=== PATIENT | female | born 1975 | race Two or more races ===

== ENCOUNTER 2020-08-30 14:41 | Emergency (ER) | payer OTHER ==
[~2020-08-30] VITALS: Ht 172.7 cm; Wt 83.6 kg
--- NOTE | 2020-08-30 15:47 | NUR ---
SENIOR SQL DEVELOPER: PT TO ROOM FROM LOBBY
--- NOTE | 2020-08-30 16:28 | NUR ---
PT SEEN AT , HAD CT SCHEDULED OUTPT AND WAS WAITING IN RADIOLOGY WHEN PAIN BECAME UNBEARABLE AND DECIDED TO CHECK INTO ER. PT CRYING IN PAIN. PAIN ONSET THURSDAY MORNING AND WORSENING TODAY. PAIN PERIUMBILICAL, CRAMPING AND SHARP. NO N/V/D OR OTHER SX. SCAR TISSUE AROUND UMBILICUS, NOT DIFFERENT PER PT BUT PAINFUL WITH PALPATION. PT LYING IN POSITION OF COMFORT, FLAT. IV PLACED, LABS DRAWN WITH START. BP CUFF, PULSE OX IN PLACE. CALL LIGHT WITHIN REACH, WARM BLANKET PROVIDED.
[2020-08-30] MEDS ORDERED: MORPHINE SULFATE 4 MG/ML, 1ML ONE ×2 (16:40→18:34)
[2020-08-30] MEDS ORDERED: ONDANSETRON 2MG/ML, 2ML ONE (16:40)
[2020-08-30] MEDS: MORPHINE SULFATE 4 MG/ML, 1ML IVPush PRN ×2 (16:45→18:37)
--- NOTE | 2020-08-30 16:49 | NUR ---
PT MEDICATED PER ERP ORDER. PT AMBULATORY TO BR TO PROVIDE UA.
[2020-08-30] MEDS ORDERED: ONDANSETRON 2MG/ML, 2ML IVPush ONE (17:00)
[2020-08-30] MEDS ORDERED: SODIUM CHLORIDE FLUSH 10ML SYR IVF ONE (17:00)
--- NOTE | 2020-08-30 17:03 | NUR ---
URINE COLLECTED/SENT TO LAB. LIGHTS DIMMED, CALL LIGHT WITHIN REACH, AWAITING CT.
[2020-08-30 17:10] LABS: MICROSCOPIC NOT IND
[2020-08-30 17:38] LABS: BASOPHILS % (AUTO) 0 % (0-1); EOSINOPHILS % (AUTO) 1 % (1-7); LYMPHOCYTES % (AUTO) 15 % (22-44); MEAN CORPUSCULAR HEMOGLOBIN 20.4 pg (27.0-34.8); MEAN CORPUSCULAR HGB CONC 30.6 g/dL (32.4-35.8); MEAN PLATELET VOLUME 7.3 fL (7.4-10.4); MONOCYTES % (AUTO) 4 % (2-9); NEUTROPHILS % (AUTO) 80 % (42-75); PLATELET COUNT 162 x10^3/uL (130-400); RED BLOOD COUNT 4.69 x10^6/uL (3.82-5.3); RED CELL DISTRIBUTION WIDTH 17.2 % (9.6-15.2)
[2020-08-30 17:45] LABS: MD MORPH REVIEW ONLY
[2020-08-30 17:49] LABS: ALANINE AMINOTRANSFERASE 32 U/L (12-78); ALBUMIN 3.9 g/dL (3.4-5.0); ANION GAP 8 mmol/L (5-15); CALCIUM 9.3 mg/dL (8.5-10.1); CHLORIDE 104 mmol/L (98-107); CREATININE 0.62 mg/dL (0.55-1.02)
[2020-08-30 17:54] LABS: ALKALINE PHOSPHATASE 51 U/L (45-117); BILIRUBIN,TOTAL 0.8 mg/dL (0.2-1.0); TOTAL PROTEIN 8.1 g/dL (6.4-8.2)
[2020-08-30 18:10] VITALS: BP 136/79
--- NOTE | 2020-08-30 18:10 | NUR ---
PT TO CT.
[2020-08-30 18:16] LABS: ANISOCYTOSIS 1+; HYPOCHROMIA 1+; MICROCYTOSIS 1+; POLYCHROMASIA 1+
[2020-08-30 18:17] LABS: <PLATELET ESTIMATE> ADEQUATE; <PLT MORPHOLOGY> NORMAL PLT MORPH; OVALOCYTES 1+
[2020-08-30] MEDS ORDERED: OMNIPAQUE 350 MG/ML, 100ML BOTTLE ONE (18:25)
--- NOTE | 2020-08-30 18:38 | NUR ---
PT BACK FROM CT. PT MEDICATED FOR RETURNING ABDOMINAL PAIN RATED 6/10. CALL LIGHT WITHIN REACH.
--- NOTE | 2020-09-01 19:59 | NUR ---
CHART ACCESSED FOR RECORDS REQUEST FROM [facility]- ED ON [address].
== END 2020-08-30 19:32 | disposition home or self-care (01) ==
LOC: ED 15:11
DX: R10.84 Generalized abdominal pain (principal); R11.0 Nausea
CPT/HCPCS: 36415; 74177; 80053; 81003; 83690; 84703; 85025; 96374; 96375; 96376; 99285; J2270; J2405; Q9967

== ENCOUNTER 2020-10-06 18:55 | Emergency (ER) | payer OTHER ==
[~2020-10-06] VITALS: Ht 175.3 cm; Wt 82.6 kg
[2020-10-06] MEDS ORDERED: SODIUM CHLORIDE FLUSH 10ML SYR IVF ONE (19:30)
[2020-10-06] MEDS ORDERED: SODIUM CHLORIDE 0.9% 1,000ML IVBOLUS ONE (19:30)
[2020-10-06] MEDS ORDERED: ONDANSETRON 2MG/ML, 2ML IVPush ONE (19:30)
[2020-10-06] MEDS ORDERED: MAALOX/HYOSCYAMINE/LIDOCAINE 45 ML BTL PO ONE (19:30)
[2020-10-06] MEDS ORDERED: FAMOTIDINE 20 MG/2 ML IVPush ONE (19:30)
--- NOTE | 2020-10-06 19:45 | NUR ---
Report received from armando Logan RN and care assumed. Pt currently out of dept to radiology. Mother remains at bedside waiting for pt return.
--- NOTE | 2020-10-06 20:05 | NUR ---
Pt found back in room without acute changes noted per pt. Orders reviewed. Still waiting for [facility] records to arrive for PA/MD review.
[2020-10-06] MEDS ORDERED: FAMOTIDINE 20 MG TABLET ONE (20:06)
[2020-10-06] MEDS ORDERED: ONDANSETRON ODT 4 MG ONE (20:06)
[2020-10-06] MEDS ORDERED: MAALOX/HYOSCYAMINE/LIDOCAINE 45 ML BTL ONE (20:06)
[2020-10-06 20:12] LABS: MEAN CORPUSCULAR HGB CONC 30.9 g/dL (32.4-35.8); MEAN PLATELET VOLUME 8.3 fL (7.4-10.4); PLATELET COUNT 111 x10^3/uL (130-400); RED BLOOD COUNT 4.35 x10^6/uL (3.82-5.3); RED CELL DISTRIBUTION WIDTH 17.3 % (9.6-15.2)
[2020-10-06 20:18] LABS: ALANINE AMINOTRANSFERASE 46 U/L (12-78); ALBUMIN 3.1 g/dL (3.4-5.0); ANION GAP 8 mmol/L (5-15); CALCIUM 8.8 mg/dL (8.5-10.1); CHLORIDE 101 mmol/L (98-107); CREATININE 0.75 mg/dL (0.55-1.02)
--- NOTE | 2020-10-06 20:20 | NUR ---
Discussed change of meds from IV to PO with PA. IV meds d/c'd and PO meds ordered.
--- NOTE | 2020-10-06 20:22 | NUR ---
PO meds given as ordered.
[2020-10-06 20:23] LABS: ALKALINE PHOSPHATASE 72 U/L (45-117); BILIRUBIN,TOTAL 1.1 mg/dL (0.2-1.0); TOTAL PROTEIN 7.9 g/dL (6.4-8.2)
[2020-10-06] MEDS ORDERED: FAMOTIDINE 20 MG TABLET PO ONE (20:30)
[2020-10-06] MEDS ORDERED: ONDANSETRON ODT 4 MG PO ONE (20:30)
--- NOTE | 2020-10-06 20:30 | NUR ---
Labs and radiology results reviewed. Awaiting manual differential on CBC for recheck designation.
[2020-10-06 20:54] LABS: ANISOCYTOSIS 1+; BAND#(MANUAL) 0.08 x10^3/uL; BANDS%(MANUAL) 1 % (0-7); BASOS#(MANUAL) 0.08 x10^3/uL (0-0.1); BASOS% (MANUAL) 1 % (0-1); EOS#(MANUAL) 0.25 x10^3/uL (0.0-0.4); EOS% (MANUAL) 3 % (1-7); LYMPH#(MANUAL) 1.25 x10^3/uL (1-3.4); LYMPHS% (MANUAL) 15 % (22-44); MICROCYTOSIS 1+; MONOS#(MANUAL) 0.25 x10^3/uL (0.3-2.7); MONOS% (MANUAL) 3 % (2-9); SEG#(MANUAL) 6.39 x10^3/uL (1.8-6.8); SEGS% (MANUAL) 77 % (42-75)
[2020-10-06 20:55] LABS: <PLATELET ESTIMATE> DECREASED; <PLT MORPHOLOGY> NORMAL PLT MORPH; ECHINOCYTES 1+; HYPOCHROMIA 1+; OVALOCYTES 1+; POLYCHROMASIA 1+
--- NOTE | 2020-10-06 21:06 | NUR ---
12 Lead EKG completed with not ST changes present and SR noted. Brought to MD for review and signature and placed on pt chart with PA.
--- NOTE | 2020-10-06 21:35 | NUR ---
Note liss in ED - 10/06/20 at 2147 by AUTUMN Dsgs with Bacitracin applied to each puncture site with sutures in place and intact. Pt tolerated without c/o voiced. D/C instructions given to parents with stated understanding.
[2020-10-06 22:10] VITALS: BP 133/80
== END 2020-10-06 22:13 | disposition home or self-care (01) ==
LOC: ED 19:09
DX: R10.13 Epigastric pain (principal); R94.31 Abnormal electrocardiogram [ECG] [EKG]; Z90.89 Acquired absence of other organs
CPT/HCPCS: 36415; 74018; 76700; 80053; 83690; 84703; 85025; 93005; 99285; Q0162